=== PATIENT | female | born 1935 | race Caucasian/White ===

== ENCOUNTER 2016-06-27 15:18 | Emergency (ER) | payer MEDICARE, OTHER ==
[~2016-06-27] VITALS: Ht 165.1 cm; Wt 101.6 kg
[2016-06-27 15:36] VITALS: BP 154/76; PULSE 101; RESP 16; TEMP 98.6; O2SAT 94
[2016-06-27] MEDS ORDERED: CITA20TA4 PO (16:28)
[2016-06-27] MEDS ORDERED: IMIP25TA PO (16:28)
[2016-06-27] MEDS ORDERED: DILT180C56 PO (16:28)
[2016-06-27] MEDS ORDERED: OMEP20TA PO (16:28)
--- NOTE | 2016-06-27 17:32 | PD ---
HPI Chief Complaint: Edema Time Seen by Provider: 17:08 Travel History International Travel<30 days: No Contact w/Intl Traveler<30days: No Traveled to known affect area: No History of Present Illness HPI 81-year-old female complains of bilateral lower extremity swelling. Patient had a long distant travel in a car to [place] 2 days ago. Patient states that she has mild swelling with redness of the low extremity prior to the trip. Patient states that the swelling and the redness got worse since the trip. Patient denies any chest pain or shortness of breath. Patient has history hypertension and kidney disease. Patient was advised to stay away from NSAIDs. Patient denies any history of DVT or PE. Patient denies any recent injury. Patient has history hypertension, depression and GERD. 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") Other Surgery: Yes (skin ca removed) Social History Alcohol Use: No Tobacco Use: No Substance Use: No Allergies-Medications (Allergen,Severity, Reaction): Coded Allergies: Nonsteroidal Anti-Inflammatory Agts (Verified Adverse Reaction, Severe, KIDNEY PROBLEM, 06/27/16) Reported Meds & Prescriptions Reported Meds & Active Scripts Active Potassium Chloride ER (Potassium Chloride) 8 Meq Cap 8 Meq PO DAILY Lasix (Furosemide) 20 Mg Tab 20 Mg PO DAILY Reported Imipramine HCL (Imipramine HCl) 25 Mg Tab 12.5 Mg PO DAILY Diltiazem CD 24 HR 180 Mg Caper 180 Mg PO DAILY Omeprazole 20 Mg Tab 20 Mg PO DAILY Citalopram (Citalopram Hydrobromide) 20 Mg Tab 20 Mg PO DAILY Review of Systems General / Constitutional: No: Fever Eyes: No: Visual changes HENT: No: Headaches Cardiovascular: No: Chest Pain or Discomfort Respiratory: No: Shortness of Breath Gastrointestinal: No: Abdominal Pain Genitourinary: No: Dysuria Musculoskeletal: Positive: Edema, Pain Skin: No Rash Neurologic: No: Weakness Psychiatric: No: Depression Endocrine: No: Polydipsia Hematologic/Lymphatic: No: Easy Bruising Physical Exam Narrative GENERAL: Well-nourished, well-developed patient. SKIN: Warm and dry. HEAD: Normocephalic. EYES: No scleral icterus. No injection or drainage. NECK: Supple, trachea midline. No JVD or lymphadenopathy. CARDIOVASCULAR: Regular rate and rhythm without murmurs, gallops, or rubs. RESPIRATORY: Breath sounds equal bilaterally. No accessory muscle use. GASTROINTESTINAL: Abdomen soft, non-tender, nondistended. MUSCULOSKELETAL: Patient has mild redness bilaterally distal lower extremity with +2 pitting edema bilaterally. Negative Homans sign. Mild tenderness on palpation posterior calf and popliteal area. BACK: Nontender without obvious deformity. No CVA tenderness. Neurologic exam normal. Data Data Last Documented VS Vital Signs Date Time Temp Pulse Resp B/P Pulse Ox O2 Delivery O2 Flow Rate FiO2 06/27/16 18:21 98 06/27/16 15:36 98.6 101 16 154/76 Orders Electrocardiogram (06/27/16 17:20) Complete Blood Count With Diff (06/27/16 17:20) Comprehensive Metabolic Panel (06/27/16 17:20) B-Type Natriuretic Peptide (06/27/16 17:20) Prothrombin Time / Inr (Pt) (06/27/16 17:20) Act Partial Throm Time (Ptt) (06/27/16 17:20) Urinalysis - C+S If Indicated (06/27/16 17:20) Thyroid Stimulating Hormone (06/27/16 17:20) Chest, Single Ap (06/27/16 17:20) Iv Access Insert/Monitor (06/27/16 17:20) Ecg Monitoring (06/27/16 17:20) Oximetry (06/27/16 17:20) Us Leg Venous Doppler Bilat (06/27/16 17:20) Urine Culture (06/27/16 17:35) Furosemide Inj (Lasix Inj) (06/27/16 19:15) Potassium Chloride (Kcl) (06/27/16 19:15) Labs Laboratory Tests Test 06/27/16 06/27/16 17:35 18:00 Urine Collection Type CLEAN CATCH Urine Color YELLOW Urine Turbidity CLEAR Urine pH 6.0 Urine Specific [place] 1.018 Urine Protein TRACE mg/dL Urine Glucose (UA) NEG mg/dL Urine Ketones NEG mg/dL Urine Occult Blood NEG Urine Nitrite NEG Urine Bilirubin NEG Urine Leukocyte Esterase SMALL Urine RBC 0-3 /hpf Urine WBC 15-19 /hpf Urine WBC Clumps MOD Microscopic Urinalysis Comment CULTURE INDICATED White Blood Count 9.3 TH/MM3 Red Blood Count 4.95 MIL/MM3 Hemoglobin 13.5 GM/DL Hematocrit 41.1 % Mean Corpuscular Volume 83.0 FL Mean Corpuscular Hemoglobin 27.2 PG Mean Corpuscular Hemoglobin 32.8 % Concent Red Cell Distribution Width 14.5 % Platelet Count 296 TH/MM3 Mean Platelet Volume 8.2 FL Neutrophils (%) (Auto) 55.1 % Lymphocytes (%) (Auto) 30.0 % Monocytes (%) (Auto) 8.2 % Eosinophils (%) (Auto) 2.8 % Basophils (%) (Auto) 3.9 % Neutrophils # (Auto) 5.0 TH/MM3 Lymphocytes # (Auto) 2.8 TH/MM3 Monocytes # (Auto) 0.8 TH/MM3 Eosinophils # (Auto) 0.3 TH/MM3 Basophils # (Auto) 0.4 TH/MM3 CBC Comment DIFF FINAL Differential Comment Prothrombin Time 11.0 SEC Prothromb Time International 1.0 RATIO Ratio Activated Partial 28.2 SEC Thromboplast Time Sodium Level 142 MEQ/L Potassium Level 3.6 MEQ/L Chloride Level 108 MEQ/L Carbon Dioxide Level 23.0 MEQ/L Anion Gap 11 MEQ/L Blood Urea Nitrogen 16 MG/DL Creatinine 1.20 MG/DL Estimat Glomerular Filtration 43 ML/MIN Rate Random Glucose 94 MG/DL Calcium Level 8.8 MG/DL Total Bilirubin 0.4 MG/DL Aspartate Amino Transf 40 U/L (AST/SGOT) Alanine Aminotransferase 42 U/L (ALT/SGPT) Alkaline Phosphatase 96 U/L B-Type Natriuretic Peptide 80 PG/ML Total Protein 7.1 GM/DL Albumin 3.7 GM/DL Thyroid Stimulating Hormone 3.310 uIU/ML [address] [place] [address] Medical Decision Making Medical Screen Exam Complete: Yes Emergency Medical Condition: Yes Interpretation(s) 1904 p.m. Chest x-ray shows no acute consolidation. CBC within normal limit. Creatinine 1.2. BNP 80. TSH normal. UA positive WBC and bacteria. Differential Diagnosis Differential diagnosis including dependent edema, DVT, cellulitis. Narrative Course 81-year-old female with bilateral extremity swelling and redness. Patient status post long distance sitting in a car recently. Lasix 40 mg IV given. KCl 10 mEq by mouth given. Diagnosis Primary Impression: Dependent edema Additional Impressions: UTI (urinary tract infection) Qualified Code: N30.00 - Acute cystitis without hematuria Chronic renal disease Qualified Code: N18.1 - Chronic renal disease, stage 1 Patient Instructions: General Instructions Additional Instructions: Lasix daily. Keep legs elevated. Follow-up with personal physician. Return if worse. Med/Other Pt SpecificInfo: Prescription(s) given Scripts Sulfamethoxazole-Trimethoprim (Bactrim DS)800-160 Mg Tab1 Tab PO BID #14 TAB Prov:Ag Stauffer MD 06/27/16 Potassium Chloride ER 8 Meq Cap8 Meq PO DAILY #5 CAP Ref 0 Prov:Ag Stauffer MD 06/27/16 Furosemide (Lasix)20 Mg Tab20 Mg PO DAILY #5 TAB Ref 0 Prov:Ag Stauffer MD 06/27/16 Disposition: 01 DISCHARGE HOME Condition: Stable Ag Stauffer MD Jun 27, 2016 17:31
[2016-06-27 17:50] LABS: BLOOD, URINE NEG (NEG); GLUCOSE,URINE NEG (NEG); KETONE, URINE NEG (NEG); NITRITE,URINE NEG (NEG)
[2016-06-27 17:52] LABS: METHOD OF COLLECTION CLEAN CATCH; URINE COLOR YELLOW (YELLW/STRAW)
[2016-06-27 17:54] LABS: COMMENT (UR) CULTURE INDICATED; CULTURE IF INDICATED CULTURE INDICATED; RBC, URINE 0-3 /hpf (0-3); WBC, URINE 15-19 /hpf (0-5)
--- NOTE | 2016-06-27 18:10 | RADHPO ---
EXAM DATE/TIME: 06/27/2016 17:39 [facility] COMPARISON: No previous studies available for comparison. INDICATIONS : Shortness of breath and bilateral leg swelling. MEDICAL HISTORY : None. SURGICAL HISTORY : None. ENCOUNTER: Initial ACUITY: 1 week PAIN SCORE: 0/10 LOCATION: Bilateral chest FINDINGS: A single view of the chest demonstrates the lungs to be symmetrically aerated without evidence of mas s, infiltrate or effusion. The cardiomediastinal contours are unremarkable. Osseous structures are intact. CONCLUSION: No acute disease. Franklin Mcmanus MD on June 27, 2016 at 18:08 Board Certified Radiologist. This report was verified electronically.
[2016-06-27 18:21] VITALS: O2SAT 98
[2016-06-27 18:25] LABS: BASOPHIL # 0.4 TH/MM3 (0-0.2); BASOPHIL % 3.9 % (0.0-2.0); EOSINOPHIL # 0.3 TH/MM3 (0-0.4); EOSINOPHIL % 2.8 % (0.0-4.0); HEMATOCRIT 41.1 % (35.0-46.0); HEMO FLAGS DIFF FINAL; LYMPHOCYTE # 2.8 TH/MM3 (1.0-4.8); MEAN CORPUSCULAR HEMOGLOBIN 27.2 PG (27.0-34.0); MEAN CORPUSCULAR HGB CONC 32.8 % (32.0-36.0); MONO % 8.2 % (0.0-8.0); NEUT % 55.1 % (16.0-70.0); PLATELET COUNT 296 TH/MM3 (150-450); RED BLOOD COUNT 4.95 MIL/MM3 (4.00-5.30); RED CELL DISTRIBUTION WIDTH 14.5 % (11.6-17.2); WHITE BLOOD COUNT 9.3 TH/MM3 (4.0-11.0)
[2016-06-27 18:38] LABS: APTT (PATIENT) 28.2 SEC (24.3-30.1)
[2016-06-27 18:44] LABS: CHLORIDE 108 MEQ/L (98-107); POTASSIUM 3.6 MEQ/L (3.5-5.1); SODIUM (NA) 142 MEQ/L (136-145)
[2016-06-27 18:47] LABS: ANION GAP 11 MEQ/L (5-15); BLOOD UREA NITROGEN 16 MG/DL (7-18)
[2016-06-27 18:50] LABS: ALT (GPT) 42 U/L (10-53); AST (GOT) 40 U/L (15-37); GLOMERULAR FILTRATION RATE 43 ML/MIN (>89)
[2016-06-27 18:52] LABS: TOTAL BILIRUBIN ADULT 0.4 MG/DL (0.2-1.0)
[2016-06-27 18:53] LABS: ALKALINE PHOSPHATASE 96 U/L (45-117)
[2016-06-27] MEDS ORDERED: POTA8CAP PO (19:11)
[2016-06-27] MEDS ORDERED: FURO1TAB62 PO (19:11)
[2016-06-27] MEDS ORDERED: FUROSEMIDE 40 MG/4 ML VIAL IV PUSH ONE (19:15)
[2016-06-27] MEDS ORDERED: BACT800T5 PO (19:15)
[2016-06-27] MEDS ORDERED: POTASSIUM CHLORIDE 20 MEQ CONTROLLED RELEASE TAB PO ONE (19:15)
--- NOTE | 2016-06-27 19:28 | RADHPO ---
EXAM DATE/TIME: 06/27/2016 18:30 [facility] COMPARISON: No previous studies available for comparison. INDICATIONS : Bilateral leg swelling. MEDICAL HISTORY : Gastroesophageal reflux disease. Hypertension. Depression. SURGICAL HISTORY : Right arm surgery. Laminectomy. Skin cancer removal. Bilateral cataract removal. ENCOUNTER: Initial ACUITY: 1 week PAIN SCORE: 6/10 LOCATION: Bilateral legs. TECHNIQUE: Venous ultrasound of the left and right leg was performed from the inguinal ligament to the proximal calf. Real-time, color Doppler and spectral tracing, compression and augmentation techniques were us ed. FINDINGS: RIGHT LEG: There is normal compressibility of the deep venous system from the inguinal region to the proximal ca lf. No echogenic clot is seen in the lumen of the common femoral, femoral, popliteal, and posterior tibial veins. There is a normal response of the venous system to proximal and distal augmentation an d respiration. LEFT LEG: There is normal compressibility of the deep venous system from the inguinal region to the proximal ca lf. No echogenic clot is seen in the lumen of the common femoral, femoral, popliteal, and posterior tibial veins. There is a normal response of the venous system to proximal and distal augmentation an d respiration. CONCLUSION: Normal examination. Franklin Mcmanus MD on June 27, 2016 at 19:26 Board Certified Radiologist. This report was verified electronically.
[2016-06-27] MEDS ORDERED: SULFAMETHOXAZOLE-TRIMETHOPRIM DS 800-160 MG TAB PO ONE (19:30)
[2016-06-27 19:38] VITALS: BP 156/76; PULSE 78; RESP 18; O2SAT 98
--- NOTE | 2016-06-28 11:40 | EKG ---
Date Performed: 06/27/2016 Time Performed: 17:53:32 PTAGE: 81 years EKG: Sinus rhythm Poor R wave progression - probable normal variant Low QRS voltages in precordial leads Borderline EC G NO PREVIOUS TRACING DOCTOR: Ankit Lugo Interpretating Date/Time 06/28/2016 11:39:50
== END 2016-06-27 19:58 | disposition home or self-care (01) ==
LOC: PHED 15:18
DX: R60.0 Localized edema (principal); N30.00 Acute cystitis without hematuria; N18.1 Chronic kidney disease, stage 1; L53.9 Erythematous condition, unspecified; R94.31 Abnormal electrocardiogram [ECG] [EKG]; I12.9 Hypertensive chronic kidney disease with stage 1 through stage 4 chronic kidney disease, or unspecified chronic kidney disease; K21.9 Gastro-esophageal reflux disease without esophagitis; Z86.59 Personal history of other mental and behavioral disorders
CPT/HCPCS: 71010; 80053; 81001; 83880; 84443; 85025; 85610; 85730; 87086; 93005; 93970; 96374; 99284; J1940